=== PATIENT | male | born 1940 | race Two or more races ===

== ENCOUNTER 2024-03-07 19:12 | Inpatient (IN) | payer OTHER ==
[~2024-03-07] VITALS: Ht 177.8 cm; Wt 80.0 kg
[2024-03-07] MEDS ORDERED: ACETAMINOPHEN 325 MG TAB PO PRN (20:00)
[2024-03-07] MEDS ORDERED: ONDANSETRON HCL 4 MG/2 ML VIAL IV PRN (20:00)
[2024-03-07] MEDS ORDERED: VANCOMYCIN PER PHARMACY 0 MG IV SCH (20:00)
[2024-03-07 21:38] VITALS: BP 143/72; PULSE 76; PULSE 77; RESP 18; TEMP 97.5; O2SAT 97
[2024-03-07 21:39] LABS: Chloride 104 mmol/L (98-107); Potassium 3.8 mmol/L (3.5-5.1); Sodium 139 mmol/L (136-145)
[2024-03-07 21:40] LABS: Anion Gap 6 (5-15); Calcium 9.4 mg/dL (8.7-10.4); Carbon Dioxide 29 mmol/L (20-30)
[2024-03-07 21:45] LABS: Blood Urea Nitrogen 22 mg/dL (9-23); Glucose 113 mg/dL (74-106)
[2024-03-07] MEDS ORDERED: ALEN70TA21 PO (22:44)
[2024-03-07] MEDS ORDERED: OXYC325T14 PO (22:44)
[2024-03-07] MEDS ORDERED: TAMS0.4C36 PO (22:44)
[2024-03-07] MEDS ORDERED: OMEP20TA PO (22:44)
[2024-03-07] MEDS ORDERED: LOVA40TA72 PO (22:44)
[2024-03-07] MEDS ORDERED: FINA5TAB4 PO (22:44)
[2024-03-08] VITALS (14 sets, daily range): BP systolic 101–133; BP diastolic 61–100; PULSE 67–98; RESP 16–22; TEMP 97.5–98.9; O2SAT 2–100
[2024-03-08] MEDS: PIPERACILLIN-TAZOB 3.375GM 100 ML IV SCH
[2024-03-08] MEDS: SODIUM CHLORIDE 0.9% 1,000 ML IV SCH
[2024-03-08] MEDS: VANCOMYCIN 1GM/200ML 200 ML IV ONE (00:36)
[2024-03-08] MEDS: HYDROcodone-ACET 5/325MG TAB PO PRN (00:42)
[2024-03-08] MEDS: MELATONIN 5 MG TAB PO PRN (00:42)
[2024-03-08] MEDS: IPRATROPIUM BROM 0.5 MG/2.5ML INH SOL NEB SCH (06:49)
[2024-03-08 07:09] LABS: Basophils # (auto) 0 10 ^3/uL (0-0.2); Eosinophils # (auto) 0 10 ^3/uL (0-0.8); Hemoglobin 10.1 g/dL (13.5-17.5)
[2024-03-08 07:13] LABS: Basophils % (auto) 0.1 % (0.0-2.0); Eosinophils % (auto) 0.2 % (0.0-7.0); Hematocrit 31.1 % (41.0-53.0); Lymphocytes % (auto) 5.1 % (10.0-50.0); Mean Corpuscular Hemoglobin 27.5 pg (28.0-32.0); Mean Corpuscular Hgb Conc. 32.5 g/dL (32.0-36.0); Mean Corpuscular Volume 84.6 fL (80.0-100.0); Monocytes # (auto) 1.1 10 ^3/uL (0-1.3); Monocytes % (auto) 5.4 % (0.0-12.0); Neutrophils # (auto) 17.9 10 ^3/uL (1.6-8.6); Neutrophils % (auto) 89.2 % (37.0-80.0); Red Blood Cells 3.68 10^6/uL (4.5-5.90); Red Cell Distribution Width 16.2 % (11.8-14.3)
[2024-03-08 07:38] LABS: Anion Gap 4 (5-15); Carbon Dioxide 31 mmol/L (20-30); Chloride 103 mmol/L (98-107); Potassium 4.1 mmol/L (3.5-5.1); Sodium 138 mmol/L (136-145)
[2024-03-08 07:44] LABS: Glucose 94 mg/dL (74-106)
[2024-03-08 07:45] LABS: BUN/Creatinine Ratio 40.4 (10.0-20.0); Blood Urea Nitrogen 23 mg/dL (9-23)
[2024-03-08] MEDS: ENOXAPARIN SOD 40 MG/0.4 ML SYRINGE SC SCH (09:33)
[2024-03-08] MEDS: FAMOTIDINE 20 MG TAB PO SCH (09:34)
[2024-03-08] MEDS: TAMSULOSIN HYDROCHLORIDE 0.4 MG CAP PO SCH (09:34)
[2024-03-08] MEDS: FINASTERIDE 5 MG TAB PO SCH (09:34)
[2024-03-08] MEDS: VANCOMYCIN 1GM/200ML 200 ML IV SCH (11:33)
[2024-03-08 13:36] LABS: CRP High Sensitivity 15.07 mg/dL (<1.0)
[2024-03-08 19:53] LABS: Erythrocyte Sedimentation Rate 30 mm/hr (0-20)
[2024-03-08] MEDS: ATORVASTATIN 20 MG TAB PO SCH (21:16)
[2024-03-08] MEDS: CEFEPIME 2GM/50ML NS 50 ML IV SCH (21:17)
[2024-03-09] VITALS (18 sets, daily range): BP systolic 121–145; BP diastolic 68–76; PULSE 67–99; RESP 14–20; TEMP 97.5–98.2; O2SAT 2–100
[2024-03-09 06:16] LABS: Basophils # (auto) 0 10 ^3/uL (0-0.2); Basophils % (auto) 0.2 % (0.0-2.0); Eosinophils # (auto) 0.1 10 ^3/uL (0-0.8); Eosinophils % (auto) 0.4 % (0.0-7.0); Hematocrit 30.5 % (41.0-53.0); Lymphocytes # (auto) 1.1 10 ^3/uL (0.4-5.4); Lymphocytes % (auto) 7.1 % (10.0-50.0); Mean Corpuscular Hemoglobin 27.3 pg (28.0-32.0); Mean Corpuscular Hgb Conc. 32.8 g/dL (32.0-36.0); Mean Corpuscular Volume 83.1 fL (80.0-100.0); Monocytes # (auto) 0.8 10 ^3/uL (0-1.3); Monocytes % (auto) 5.4 % (0.0-12.0); Neutrophils # (auto) 13.1 10 ^3/uL (1.6-8.6); Neutrophils % (auto) 86.9 % (37.0-80.0); Red Blood Cells 3.67 10^6/uL (4.5-5.90); Red Cell Distribution Width 15.7 % (11.8-14.3); White Blood Cell 15.1 10^3/uL (4.4-10.8)
[2024-03-09 06:26] LABS: Calcium 8.9 mg/dL (8.7-10.4); Chloride 102 mmol/L (98-107); Potassium 3.6 mmol/L (3.5-5.1); Sodium 137 mmol/L (136-145)
[2024-03-09 06:27] LABS: Anion Gap 5 (5-15); Carbon Dioxide 30 mmol/L (20-30)
[2024-03-09 06:32] LABS: BUN/Creatinine Ratio 39.1 (10.0-20.0); Blood Urea Nitrogen 18 mg/dL (9-23); Glucose 87 mg/dL (74-106)
[2024-03-09 06:36] LABS: INR 1.09 (0.9-1.15); Partial Thromboplastin Time 35.7 SEC (24.5-34.5); Prothrombin Time 11.5 sec (9.3-11.8)
[2024-03-09] MEDS: ALENDRONATE SODIUM 10 MG TAB PO SCH (07:30)
[2024-03-09] MEDS ORDERED: LACTULOSE 20Gm/30ML SOLN PO PRN (13:15)
[2024-03-09] MEDS: LACTULOSE 20Gm/30ML SOLN PO ONE (15:09)
[2024-03-10] VITALS (16 sets, daily range): BP systolic 136–145; BP diastolic 73–94; PULSE 14–103; RESP 16–94; TEMP 97.7–98.4; O2SAT 2–100
[2024-03-10 06:48] LABS: Hemoglobin 10.9 g/dL (13.5-17.5); Red Cell Distribution Width 15.7 % (11.8-14.3)
[2024-03-10 06:51] LABS: Hematocrit 32.9 % (41.0-53.0); Mean Corpuscular Hemoglobin 27.4 pg (28.0-32.0); Mean Corpuscular Hgb Conc. 32.9 g/dL (32.0-36.0); Mean Corpuscular Volume 83.3 fL (80.0-100.0); Red Blood Cells 3.95 10^6/uL (4.5-5.90); White Blood Cell 15.5 10^3/uL (4.4-10.8)
[2024-03-10 07:04] LABS: Basophils % (manual) 0 (0.0-2.0); Blast Cells 0; Eosinophils % (manual) 0 (0-7); Metamyelocytes % 0; Myelocytes % 0; Promyelocytes % 0; Reactive Lymphocytes 0
[2024-03-10 07:05] LABS: BUN/Creatinine Ratio 40.5 (10.0-20.0); Blood Urea Nitrogen 17 mg/dL (9-23); Glucose 88 mg/dL (74-106)
[2024-03-10 07:09] LABS: Urine Bacteria None Seen /hpf (None Seen)
[2024-03-10 07:12] LABS: Anion Gap 11 (5-15); Carbon Dioxide 24 mmol/L (20-30); Chloride 102 mmol/L (98-107); Potassium 3.3 mmol/L (3.5-5.1); Sodium 137 mmol/L (136-145)
[2024-03-10 07:14] LABS: Calcium 8.8 mg/dL (8.7-10.4)
[2024-03-10 07:34] LABS: Urine Blood Negative /uL (Negative); Urine Clarity Clear (Clear); Urine Color Yellow (Yellow); Urine Hyaline Cast MOD /lpf (0 - 2); Urine Mucus FEW (None Seen); Urine Protein, UAD 1+ (Negative); Urine Specific Gravity 1.029 (1.001-1.035); Urine Urobilinogen Normal (Negative); Urine WBC 2 /hpf (0 - 3)
[2024-03-10 07:44] LABS: Amphetamine Screen, Urine Neg (NEGATIVE); Barbiturate Scree,Urine Neg (NEGATIVE); Benzodiazephine Screen, Urine Neg (NEGATIVE); Cannabinoid Screen, Urine Pos (NEGATIVE); Cocaine Screen, Urine Neg (NEGATIVE); Opiate Scree,Urine Pos (NEGATIVE); Phencyclidine Screen, Urine Neg (NEGATIVE)
[2024-03-10 07:50] LABS: Band Neutrophils % (manual) 1; Lymphocytes % (manual) 10 (10.0-50.0); Monocytes % (manual) 5 (0-12); Platelet Estimate Adequate
[2024-03-10] MEDS: Ensure HIGH Protein Chocolate 8oz Bottle PO SCH (18:00)
[2024-03-10] MEDS: MORPHINE SULFATE INJ 2 MG/ml SYRG IV PRN (20:52)
[2024-03-11] VITALS (9 sets, daily range): BP systolic 124–138; BP diastolic 72–85; PULSE 81–94; RESP 16–22; TEMP 98.3–98.7; O2SAT 91–100
[2024-03-11] MEDS ORDERED: LORazepam 0.5 MG TAB PO PRN (11:00)
[2024-03-11] MEDS ORDERED: GASTROGRAFIN 120 ML SOL ONE (13:11)
[2024-03-11 14:17] LABS: Basophils # (auto) 0.1 10 ^3/uL (0-0.2); Basophils % (auto) 0.5 % (0.0-2.0); Eosinophils # (auto) 0.1 10 ^3/uL (0-0.8); Eosinophils % (auto) 0.4 % (0.0-7.0); Hematocrit 35.7 % (41.0-53.0); Hemoglobin 11.4 g/dL (13.5-17.5); Lymphocytes # (auto) 0.7 10 ^3/uL (0.4-5.4); Lymphocytes % (auto) 4.7 % (10.0-50.0); Mean Corpuscular Hemoglobin 26.2 pg (28.0-32.0); Monocytes # (auto) 0.6 10 ^3/uL (0-1.3); Monocytes % (auto) 3.8 % (0.0-12.0); Neutrophils # (auto) 13.8 10 ^3/uL (1.6-8.6); Neutrophils % (auto) 90.6 % (37.0-80.0); Red Blood Cells 4.36 10^6/uL (4.5-5.90); Red Cell Distribution Width 15.6 % (11.8-14.3); White Blood Cell 15.3 10^3/uL (4.4-10.8)
[2024-03-11 14:32] LABS: INR 1.13 (0.9-1.15); Partial Thromboplastin Time 38.2 SEC (24.5-34.5); Prothrombin Time 11.9 sec (9.3-11.8)
[2024-03-11 14:35] LABS: Chloride 100 mmol/L (98-107); Potassium 3.4 mmol/L (3.5-5.1); Sodium 135 mmol/L (136-145)
[2024-03-11 14:36] LABS: Anion Gap 7 (5-15); Calcium 8.7 mg/dL (8.5-10.1); Carbon Dioxide 28 mmol/L (20-30)
[2024-03-11 14:41] LABS: Blood Urea Nitrogen 10 mg/dL (9-23); Glucose 98 mg/dL (74-106)
[2024-03-12] VITALS (17 sets, daily range): BP systolic 102–159; BP diastolic 64–82; PULSE 70–96; RESP 16–21; TEMP 98–98.6; O2SAT 93–100
[2024-03-12 06:25] LABS: Chloride 104 mmol/L (98-107); Potassium 3.3 mmol/L (3.5-5.1); Sodium 140 mmol/L (136-145)
[2024-03-12 06:26] LABS: Anion Gap 9 (5-15); Calcium 8.8 mg/dL (8.7-10.4); Carbon Dioxide 27 mmol/L (20-30)
[2024-03-12 06:27] LABS: Eosinophils # (auto) 0 10 ^3/uL (0-0.8); Eosinophils % (auto) 0.2 % (0.0-7.0); Hemoglobin 11.4 g/dL (13.5-17.5); Lymphocytes # (auto) 0.9 10 ^3/uL (0.4-5.4); Mean Corpuscular Hemoglobin 26.7 pg (28.0-32.0); Monocytes # (auto) 0.6 10 ^3/uL (0-1.3); Neutrophils # (auto) 11.6 10 ^3/uL (1.6-8.6); Neutrophils % (auto) 88.4 % (37.0-80.0); Red Cell Distribution Width 15.7 % (11.8-14.3); White Blood Cell 13.1 10^3/uL (4.4-10.8)
[2024-03-12 06:30] LABS: Basophils # (auto) 0 10 ^3/uL (0-0.2); Basophils % (auto) 0.3 % (0.0-2.0); Hematocrit 34.9 % (41.0-53.0); Lymphocytes % (auto) 6.5 % (10.0-50.0); Mean Corpuscular Hgb Conc. 32.6 g/dL (32.0-36.0); Mean Corpuscular Volume 82.1 fL (80.0-100.0); Monocytes % (auto) 4.6 % (0.0-12.0); Nucleated Red Blood Cells % 0.1 %; Red Blood Cells 4.25 10^6/uL (4.5-5.90)
[2024-03-12 06:31] LABS: BUN/Creatinine Ratio 31.9 (10.0-20.0); Blood Urea Nitrogen 15 mg/dL (9-23); Glucose 103 mg/dL (74-106)
[2024-03-12] MEDS: ceFAZolin 2 GM/D5W50ml 50 ML IV SCH (14:00)
[2024-03-12] MEDS: POTASSIUM EFFERVESENT TAB 25 MEQ GT SCH (23:19)
[2024-03-13] VITALS (17 sets, daily range): BP systolic 106–151; BP diastolic 64–89; PULSE 71–87; RESP 11–21; TEMP 97.6–98.2; O2SAT 93–100
[2024-03-13] MEDS: SOD CHL 0.9%/ KCL 20MEQ 1,000 ML IV SCH (01:13)
[2024-03-13 05:41] LABS: Basophils # (auto) 0.1 10 ^3/uL (0-0.2); Basophils % (auto) 0.6 % (0.0-2.0); Eosinophils # (auto) 0.2 10 ^3/uL (0-0.8); Eosinophils % (auto) 1.8 % (0.0-7.0); Hemoglobin 10.5 g/dL (13.5-17.5); Monocytes # (auto) 0.7 10 ^3/uL (0-1.3); Monocytes % (auto) 7.3 % (0.0-12.0); White Blood Cell 10.2 10^3/uL (4.4-10.8)
[2024-03-13 05:44] LABS: Hematocrit 31.7 % (41.0-53.0); Lymphocytes # (auto) 1.1 10 ^3/uL (0.4-5.4); Lymphocytes % (auto) 10.8 % (10.0-50.0); Mean Corpuscular Hemoglobin 27.4 pg (28.0-32.0); Mean Corpuscular Hgb Conc. 33.3 g/dL (32.0-36.0); Mean Corpuscular Volume 82.4 fL (80.0-100.0); Neutrophils # (auto) 8.1 10 ^3/uL (1.6-8.6); Neutrophils % (auto) 79.5 % (37.0-80.0); Red Blood Cells 3.84 10^6/uL (4.5-5.90); Red Cell Distribution Width 15.6 % (11.8-14.3)
[2024-03-13 05:53] LABS: Chloride 105 mmol/L (98-107); Potassium 3.7 mmol/L (3.5-5.1); Sodium 143 mmol/L (136-145)
[2024-03-13 05:54] LABS: Anion Gap 10 (5-15); Carbon Dioxide 28 mmol/L (20-30)
[2024-03-13 05:55] LABS: Calcium 8.6 mg/dL (8.7-10.4)
[2024-03-13 05:59] LABS: BUN/Creatinine Ratio 37.5 (10.0-20.0); Blood Urea Nitrogen 15 mg/dL (9-23); Glucose 89 mg/dL (74-106)
[2024-03-13 06:09] LABS: INR 1.1 (0.9-1.15); Partial Thromboplastin Time 33.3 SEC (24.5-34.5); Prothrombin Time 11.6 sec (9.3-11.8)
[2024-03-13] MEDS ORDERED: ONDANSETRON HCL 4 MG/2 ML VIAL ONE (12:10)
[2024-03-13] MEDS ORDERED: SODIUM CHLORIDE LOCK 10 ML ONE (12:10)
[2024-03-13] MEDS ORDERED: MIDAZOLAM HCL 2MG/2ML 2ml VIAL (1mg/ml) ONE (12:10)
[2024-03-13] MEDS ORDERED: KETAMINE 50mg/ML 1ml syringe ONE (12:10)
[2024-03-13] MEDS ORDERED: PROPOFOL 10 MG/ML 20 ML IV ONE (12:10)
[2024-03-13] MEDS ORDERED: fentaNYL CITRATE 100 MCG/2 ML VL ONE (12:10)
[2024-03-13] MEDS ORDERED: MORPHINE SULFATE INJ 2 MG/ml SYRG IV PRN (12:15)
[2024-03-13] MEDS ORDERED: KETOROLAC TROMETH 30 MG/ML 1ML VIAL IV ONE (12:15)
[2024-03-13] MEDS ORDERED: METOCLOPRAMIDE HCL 5MG/ml INJ 2ml VIAL IV ONE (12:15)
[2024-03-13] MEDS ORDERED: HYDROmorphone HCL 2 MG/ML VL/or syr IV PRN ×2 (12:15)
[2024-03-13] MEDS ORDERED: fentaNYL CITRATE 100 MCG/2 ML VL IV PRN (12:15)
[2024-03-13] MEDS: LIDOCAINE 1% HCL (LOCAL ANESTH.) INJ 20ML MDV ONE (12:50)
[2024-03-13] MEDS: BUPIVACAINE HCL 50 ML ONE (12:50)
[2024-03-14] VITALS (11 sets, daily range): BP systolic 126–156; BP diastolic 69–87; PULSE 72–92; RESP 14–18; TEMP 97.6–98.3; O2SAT 90–98
== END 2024-03-14 22:10 | DRG 571 ==
LOC: TELE-CENTR 20:50
PROVIDERS: ADMIT Nurse Practitioner Family; ATTEND Hospitalist
PROC: 0JBQ0ZZ Excision of Right Foot Subcutaneous Tissue and Fascia, Open Approach (ICD-10-PCS; principal; 2024-03-13 12:41)
DX: L03.115 Cellulitis of right lower limb (principal); I96 Gangrene, not elsewhere classified; S91.301A Unspecified open wound, right foot, initial encounter; L97.519 Non-pressure chronic ulcer of other part of right foot with unspecified severity; R09.02 Hypoxemia; F40.00 Agoraphobia, unspecified; H91.90 Unspecified hearing loss, unspecified ear; J45.909 Unspecified asthma, uncomplicated; M81.0 Age-related osteoporosis without current pathological fracture; I50.9 Heart failure, unspecified; I25.10 Atherosclerotic heart disease of native coronary artery without angina pectoris; I11.0 Hypertensive heart disease with heart failure; I48.91 Unspecified atrial fibrillation; I77.810 Thoracic aortic ectasia; N40.0 Benign prostatic hyperplasia without lower urinary tract symptoms; F03.A0 Unspecified dementia, mild, without behavioral disturbance, psychotic disturbance, mood disturbance, and anxiety; Z86.718 Personal history of other venous thrombosis and embolism; Z86.79 Personal history of other diseases of the circulatory system; Z82.5 Family history of asthma and other chronic lower respiratory diseases; Z95.1 Presence of aortocoronary bypass graft; Z82.62 Family history of osteoporosis; X58.XXXA Exposure to other specified factors, initial encounter; Y93.89 Activity, other specified; Y92.89 Other specified places as the place of occurrence of the external cause; Y99.8 Other external cause status
CPT/HCPCS: 36415; 73502; 73620; 73718; 74220; 80048; 80061; 80202; 80307; 81001; 82306; 82607; 83036; 85007; 85025; 85027; 85048; 85610; 85652; 85730; 86141; 87040; 87045; 87070; 87075; 87077; 87186; 87205; 87427; 92610; 93306; 93925; 94640; 97110; 97116; 97163; 97530; G0378; J0692; J2001; J2250; J2405; J2543; J2704; J3490